=== PATIENT | female | born 1955 | race African-American/Black ===

== ENCOUNTER 2022-07-09 21:10 | Emergency (ER) | payer OTHER, MEDICAID ==
[~2022-07-09] VITALS: Ht 160 cm; Wt 51.0 kg
[2022-07-10] MEDS ORDERED: METHYLPREDNISOLONE SOD SUCC 125 MG/2 ML VIAL IV STA (00:28)
[2022-07-10] MEDS ORDERED: IPRATROPIUM BROMIDE (0.02%) 0.5MG/2.5ML NEB HHN STA ×2 (00:28→04:21)
[2022-07-10] MEDS: ALBUTEROL (0.083%) 2.5MG/3ML NEB HHN SCH ×3 (00:47→01:33)
[2022-07-10 01:04] LABS: BASOPHILS % 0.4 % (0.0-2.0); EOSINOPHILS % 7.4 % (0.0-5.0); HEMATOCRIT. 32.4 % (36.0-48.0); HEMOGLOBIN. 10.5 g/dL (12.0-16.0); LYMPHOCYTES % 22.5 % (20.0-50.0); MEAN CORPUSCULAR HEMOGLOBIN 26.3 pg (28.0-32.0); MEAN CORPUSCULAR VOLUME 80.6 fL (81.0-99.0); MEAN PLATELET VOLUME 7.3 fl (7.4-10.4); MONOCYTES % 6.8 % (2.0-8.0); NEUTROPHILS % 62.9 % (40.0-76.0); PLATELET 350 x1000/uL (130-400); RED BLOOD CELL COUNT 4.02 mill/uL (4.2-5.4); RED CELL DISTRIBUTION WIDTH 15.1 % (11.6-14.6)
[2022-07-10 01:20] LABS: CHLORIDE 96 mEq/L (98-107)
[2022-07-10] MEDS ORDERED: PRED10TA MT (03:40)
[2022-07-10] MEDS ORDERED: ALBUTEROL (0.083%) 2.5MG/3ML NEB HHN STA (04:21)
[2022-07-10 04:30] VITALS: BP 111/61
== END 2022-07-10 05:00 | disposition home or self-care (01) ==
LOC: ER 22:08
DX: J84.10 Pulmonary fibrosis, unspecified (principal); J44.9 Chronic obstructive pulmonary disease, unspecified; R06.02 Shortness of breath
CPT/HCPCS: 36415; 71045; 80053; 83605; 83880; 84484; 85025; 93005; 96374; 99285; J2930

== ENCOUNTER 2022-07-10 07:55 | Emergency (ER) | payer OTHER, MEDICAID ==
[~2022-07-10] VITALS: Ht 157.5 cm; Wt 59.0 kg
[~2022-07-10 07:55] MED LIST: PRED10TA MT
[2022-07-10] MEDS ORDERED: ALBUTEROL (0.083%) 2.5MG/3ML NEB HHN STA (08:08)
[2022-07-10 09:22] VITALS: BP 126/71
== END 2022-07-10 11:05 | disposition short-term general hospital (02) ==
LOC: ER 07:55 → CANBEDREQ 07-11 13:43
DX: R06.03 Acute respiratory distress (principal); J44.1 Chronic obstructive pulmonary disease with (acute) exacerbation; Z20.822 Contact with and (suspected) exposure to COVID-19; Z98.890 Other specified postprocedural states
CPT/HCPCS: 36415; 71045; 84484; 87426; 93005; 99285; C9803

== ENCOUNTER 2022-10-09 17:30 | Inpatient (IN) | payer OTHER, MEDICAID ==
[~2022-10-09] VITALS: Ht 149.9 cm; Wt 50.8 kg
[2022-10-09] MEDS ORDERED: METHYLPREDNISOLONE SOD SUCC 125 MG/2 ML VIAL IV STA (17:54)
[2022-10-09] MEDS ORDERED: ALBUTEROL (0.083%) 2.5MG/3ML NEB HHN STA (17:54)
[2022-10-09] MEDS ORDERED: IPRATROPIUM BROMIDE (0.02%) 0.5MG/2.5ML NEB HHN STA (17:54)
[2022-10-09 19:51] LABS: HEMATOCRIT. 38.2 % (36.0-48.0); HEMOGLOBIN. 11.8 g/dL (12.0-16.0); MEAN CORPUSCULAR HEMOGLOBIN 27.2 pg (28.0-32.0); MEAN CORPUSCULAR VOLUME 88.2 fL (81.0-99.0); MEAN PLATELET VOLUME 7.6 fl (7.4-10.4); PLATELET 273 x1000/uL (130-400); RED BLOOD CELL COUNT 4.33 mill/uL (4.2-5.4); RED CELL DISTRIBUTION WIDTH 16.5 % (11.6-14.6)
[2022-10-09 19:56] LABS: CHLORIDE 99 mEq/L (98-107)
[2022-10-09 20:19] LABS: PLATELET ESTIMATE NORMAL
[2022-10-09] MEDS ORDERED: ALBUTEROL (0.5%) 2.5MG/0.5ML NEB HHN ONE (22:15)
[2022-10-09] MEDS ORDERED: METHYLPREDNISOLONE SOD SUCC 125 MG/2 ML VIAL IV NR (22:15)
[2022-10-09] MEDS ORDERED: IPRATROPIUM BROMIDE (0.02%) 0.5MG/2.5ML NEB ONE (22:15)
[2022-10-10] MEDS ORDERED: ALBUTEROL (0.083%) 2.5MG/3ML NEB HHN NR (01:08)
[2022-10-10] MEDS ORDERED: IPRATROPIUM BROMIDE (0.02%) 0.5MG/2.5ML NEB HHN NR (01:08)
[2022-10-10] MEDS ORDERED: SODIUM CHLORIDE 0.9% 1000ML BAG (SEPSIS BOLUS) IV ONE (01:15)
[2022-10-10] MEDS: VANCOMYCIN 1G PREMIX 200 ML IV NR ×2 (01:47→04:45)
[2022-10-10] MEDS: PIPERACILLIN/TAZ 3.375G PREMIX 50 ML IV NR ×2 (01:47→04:45)
[2022-10-10] MEDS: METHYLPREDNISOLONE SOD SUCC 40 MG/ML VIAL IV SCH ×2 (11:43→21:23)
[2022-10-10] MEDS: PIPERACILLIN/TAZOBACTAM 3.375 G in DEXTROSE 5% WATER 50 ML IV SCH ×2 (11:43→22:31)
[2022-10-10] MEDS: IPRATROPIUM/ALBUTEROL 0.5-3(2.5)MG/3ML NEB HHN SCH ×3 (12:04→20:55)
[2022-10-10 16:44] VITALS: BP 132/55
[2022-10-10 16:51] VITALS: BP 132/55
[2022-10-10 18:00] VITALS: BP 120/68
[2022-10-10 20:00] VITALS: BP 129/80
[2022-10-10] MEDS: MIRTAZAPINE 15MG TABLET PO SCH (21:24)
[2022-10-10] MEDS: FAMOTIDINE 20MG TABLET PO SCH (21:24)
[2022-10-10] MEDS: DOCUSATE SODIUM 250MG CAPSULE PO PRN (21:25)
[2022-10-10 22:00] VITALS: BP 147/86
[2022-10-11] VITALS (13 sets, daily range): BP systolic 99–140; BP diastolic 65–85
[2022-10-11] MEDS: IPRATROPIUM/ALBUTEROL 0.5-3(2.5)MG/3ML NEB HHN SCH ×2 (00:53→04:52)
[2022-10-11 01:54] LABS: CLARITY URINE CLEAR (CLEAR); COLOR URINE YELLOW (YELLOW); KETONES URINE NEGATIVE (NEGATIVE); LEUKOCYTE ESTERASE URINE 3+ (NEGATIVE); NITRITE URINE NEGATIVE (NEGATIVE); OCCULT BLOOD URINE NEGATIVE (NEGATIVE); PH URINE 8.5 (4.5-8.0); PROTEIN URINE TRACE (NEGATIVE); SPECIFIC GRAVITY URINE 1.017 (1.005-1.030); UROBILINOGEN URINE 0.2 E.U./dL (0.2-1.0)
[2022-10-11] MEDS: METHYLPREDNISOLONE SOD SUCC 40 MG/ML VIAL IV SCH ×3 (03:00→21:17)
[2022-10-11] MEDS: PIPERACILLIN/TAZOBACTAM 3.375 G in DEXTROSE 5% WATER 50 ML IV SCH ×3 (06:25→21:17)
[2022-10-11 06:43] LABS: HEMOGLOBIN. 10.8 g/dL (12.0-16.0); MEAN CORPUSCULAR HEMOGLOBIN 27.7 pg (28.0-32.0); MEAN CORPUSCULAR VOLUME 87.3 fL (81.0-99.0); PLATELET 257 x1000/uL (130-400); RED BLOOD CELL COUNT 3.89 mill/uL (4.2-5.4); RED CELL DISTRIBUTION WIDTH 16.5 % (11.6-14.6)
[2022-10-11] MEDS ORDERED: ALBUTEROL (0.083%) 2.5MG/3ML NEB HHN PRN ×2 (08:00)
[2022-10-11] MEDS ORDERED: IPRATROPIUM BROMIDE (0.02%) 0.5MG/2.5ML NEB HHN PRN ×2 (08:00)
[2022-10-11] MEDS: SERTRALINE HCL 25MG TABLET PO SCH (09:11)
[2022-10-11] MEDS: BENZONATATE 100MG CAPSULE PO SCH ×3 (09:11→17:08)
[2022-10-11] MEDS: LORAZEPAM 0.5MG TABLET PO SCH ×3 (09:11→17:08)
[2022-10-11] MEDS: DOCUSATE SODIUM 250MG CAPSULE PO PRN (09:11)
[2022-10-11 15:38] LABS: PLATELET ESTIMATE NORMAL
[2022-10-11] MEDS: IPRATROPIUM BROMIDE (0.02%) 0.5MG/2.5ML NEB HHN SCH ×2 (16:50→20:46)
[2022-10-11] MEDS: ALBUTEROL (0.083%) 2.5MG/3ML NEB HHN SCH ×2 (16:51→20:47)
[2022-10-11] MEDS: FAMOTIDINE 20MG TABLET PO SCH (21:17)
[2022-10-11] MEDS: MIRTAZAPINE 15MG TABLET PO SCH (21:17)
[2022-10-12] VITALS (14 sets, daily range): BP systolic 107–128; BP diastolic 67–86
[2022-10-12] MEDS: IPRATROPIUM BROMIDE (0.02%) 0.5MG/2.5ML NEB HHN SCH ×6 (00:22→19:58)
[2022-10-12] MEDS: ALBUTEROL (0.083%) 2.5MG/3ML NEB HHN SCH ×6 (00:22→19:58)
[2022-10-12] MEDS: METHYLPREDNISOLONE SOD SUCC 40 MG/ML VIAL IV SCH ×3 (03:14→21:17)
[2022-10-12] MEDS: PIPERACILLIN/TAZOBACTAM 3.375 G in DEXTROSE 5% WATER 50 ML IV SCH ×2 (06:02→13:48)
[2022-10-12] MEDS: DOCUSATE SODIUM 250MG CAPSULE PO PRN (08:17)
[2022-10-12] MEDS: BENZONATATE 100MG CAPSULE PO SCH ×3 (08:17→17:40)
[2022-10-12] MEDS: LORAZEPAM 0.5MG TABLET PO SCH ×3 (08:17→17:40)
[2022-10-12] MEDS: SERTRALINE HCL 25MG TABLET PO SCH (08:17)
[2022-10-12 10:06] LABS: BG BASE EXCESS 5.7 mmol/L (-2.0-2.0); BG CARBOXYHEMOGLOBIN 1.4 % (0.5-1.5); BG DEOXYHEMOGLOBIN 4.3 % (0.0-5.0); BG FRACTION INSPIRED OXYGEN 60; BG HCO3 ACT 32.1 mmol/L (22.0-26.0); BG METHEMOGLOBIN 0.3 % (0.0-1.5); BG OXYGEN SATURATION 95.6 % (92.0-98.5); BG PCO2 55.4 mmHg (35.0-45.0); BG PH 7.381 (7.350-7.450); BG PO2 85.9 mmHg (75.0-100.0); BG SAMPLE SITE LEFT BRACHIAL; BG TOTAL HEMOGLOBIN 12.1 g/dL (12.0-18.0); BG VENT MODE HIGH FLOW
[2022-10-12] MEDS: FAMOTIDINE 20MG TABLET PO SCH (21:17)
[2022-10-12] MEDS: MIRTAZAPINE 15MG TABLET PO SCH (21:18)
[2022-10-13] VITALS (10 sets, daily range): BP systolic 103–128; BP diastolic 70–92
[2022-10-13] MEDS: IPRATROPIUM BROMIDE (0.02%) 0.5MG/2.5ML NEB HHN SCH ×6 (01:00→20:16)
[2022-10-13] MEDS: ALBUTEROL (0.083%) 2.5MG/3ML NEB HHN SCH ×6 (01:01→20:16)
[2022-10-13] MEDS: SERTRALINE HCL 25MG TABLET PO SCH (09:48)
[2022-10-13] MEDS: BENZONATATE 100MG CAPSULE PO SCH ×3 (09:48→17:35)
[2022-10-13] MEDS: LORAZEPAM 0.5MG TABLET PO SCH ×3 (09:48→17:35)
[2022-10-13] MEDS: METHYLPREDNISOLONE SOD SUCC 40 MG/ML VIAL IV SCH ×3 (11:00→20:39)
[2022-10-13 16:11] LABS: CHLORIDE 101 mEq/L (98-107); HEMATOCRIT. 37.7 % (36.0-48.0); HEMOGLOBIN. 11.7 g/dL (12.0-16.0); MEAN CORPUSCULAR HEMOGLOBIN 27.2 pg (28.0-32.0); MEAN CORPUSCULAR VOLUME 87.6 fL (81.0-99.0); MEAN PLATELET VOLUME 7.7 fl (7.4-10.4); PLATELET 257 x1000/uL (130-400); RED CELL DISTRIBUTION WIDTH 16.6 % (11.6-14.6)
[2022-10-13 17:42] LABS: PLATELET ESTIMATE NORMAL
[2022-10-13] MEDS: MIRTAZAPINE 15MG TABLET PO SCH (20:39)
[2022-10-13] MEDS: FAMOTIDINE 20MG TABLET PO SCH (20:39)
[2022-10-14] VITALS (13 sets, daily range): BP systolic 96–131; BP diastolic 59–90
[2022-10-14] MEDS: ALBUTEROL (0.083%) 2.5MG/3ML NEB HHN SCH ×6 (00:23→20:50)
[2022-10-14] MEDS: IPRATROPIUM BROMIDE (0.02%) 0.5MG/2.5ML NEB HHN SCH ×6 (00:23→20:50)
[2022-10-14] MEDS: METHYLPREDNISOLONE SOD SUCC 40 MG/ML VIAL IV SCH ×3 (02:24→17:59)
[2022-10-14] MEDS: LORAZEPAM 0.5MG TABLET PO SCH ×3 (09:22→17:59)
[2022-10-14] MEDS: BENZONATATE 100MG CAPSULE PO SCH ×3 (09:22→17:59)
[2022-10-14 11:44] LABS: BG BASE EXCESS 9.4 mmol/L (-2.0-2.0); BG CARBOXYHEMOGLOBIN 1.1 % (0.5-1.5); BG DEOXYHEMOGLOBIN 10.2 % (0.0-5.0); BG FRACTION INSPIRED OXYGEN 45; BG HCO3 ACT 34.5 mmol/L (22.0-26.0); BG METHEMOGLOBIN 0.3 % (0.0-1.5); BG OXYGEN SATURATION 89.7 % (92.0-98.5); BG OXYHEMOGLOBIN 88.4 % (94.0-97.0); BG PCO2 49.1 mmHg (35.0-45.0); BG PH 7.465 (7.350-7.450); BG PO2 55.6 mmHg (75.0-100.0); BG SAMPLE SITE RIGHT RADIAL; BG TOTAL HEMOGLOBIN 12.8 g/dL (12.0-18.0); BG VENT MODE HIGH FLOW
[2022-10-14] MEDS: SERTRALINE HCL 25MG TABLET PO SCH (11:57)
[2022-10-14] MEDS: FAMOTIDINE 20MG TABLET PO SCH (21:21)
[2022-10-14] MEDS: MIRTAZAPINE 15MG TABLET PO SCH (21:21)
[2022-10-15] VITALS (10 sets, daily range): BP systolic 85–124; BP diastolic 48–76
[2022-10-15] MEDS: ALBUTEROL (0.083%) 2.5MG/3ML NEB HHN SCH ×6 (00:27→22:00)
[2022-10-15] MEDS: IPRATROPIUM BROMIDE (0.02%) 0.5MG/2.5ML NEB HHN SCH ×6 (00:27→22:00)
[2022-10-15] MEDS: METHYLPREDNISOLONE SOD SUCC 40 MG/ML VIAL IV SCH ×3 (02:39→18:29)
[2022-10-15] MEDS: LORAZEPAM 0.5MG TABLET PO SCH ×3 (08:44→17:39)
[2022-10-15] MEDS: SERTRALINE HCL 25MG TABLET PO SCH (08:44)
[2022-10-15] MEDS: BENZONATATE 100MG CAPSULE PO SCH ×3 (08:44→17:39)
[2022-10-15] MEDS: MIRTAZAPINE 15MG TABLET PO SCH (20:40)
[2022-10-15] MEDS: FAMOTIDINE 20MG TABLET PO SCH (20:40)
[2022-10-15] MEDS: ACETAMINOPHEN 325MG TABLET PO PRN (22:26)
[2022-10-15] MEDS: ONDANSETRON HCL 4MG/2ML INJ IV PRN (22:35)
[2022-10-16] VITALS (12 sets, daily range): BP systolic 94–136; BP diastolic 57–84
[2022-10-16] MEDS: ALBUTEROL (0.083%) 2.5MG/3ML NEB HHN SCH ×6 (01:09→20:28)
[2022-10-16] MEDS: IPRATROPIUM BROMIDE (0.02%) 0.5MG/2.5ML NEB HHN SCH ×6 (01:09→20:27)
[2022-10-16] MEDS: METHYLPREDNISOLONE SOD SUCC 40 MG/ML VIAL IV SCH ×3 (03:03→18:17)
[2022-10-16 06:00] LABS: HEMATOCRIT. 34.8 % (36.0-48.0); MEAN CORPUSCULAR HEMOGLOBIN 27.6 pg (28.0-32.0); MEAN CORPUSCULAR VOLUME 87.2 fL (81.0-99.0); PLATELET 215 x1000/uL (130-400); RED BLOOD CELL COUNT 3.99 mill/uL (4.2-5.4); RED CELL DISTRIBUTION WIDTH 16.4 % (11.6-14.6)
[2022-10-16] MEDS: SERTRALINE HCL 25MG TABLET PO SCH (09:43)
[2022-10-16] MEDS: BENZONATATE 100MG CAPSULE PO SCH ×3 (09:43→17:28)
[2022-10-16] MEDS: LORAZEPAM 0.5MG TABLET PO SCH (09:43)
[2022-10-16 10:42] LABS: CHLORIDE 100 mEq/L (98-107)
[2022-10-16] MEDS: ENOXAPARIN 40MG/0.4ML SYR SUBCUT SCH (11:01)
[2022-10-16 13:06] LABS: PLATELET ESTIMATE NORMAL
[2022-10-16] MEDS: FAMOTIDINE 20MG TABLET PO SCH (22:07)
[2022-10-16] MEDS: MIRTAZAPINE 15MG TABLET PO SCH (22:07)
[2022-10-17] VITALS (13 sets, daily range): BP systolic 114–139; BP diastolic 65–86
[2022-10-17] MEDS: ALBUTEROL (0.083%) 2.5MG/3ML NEB HHN SCH ×5 (01:52→15:52)
[2022-10-17] MEDS: IPRATROPIUM BROMIDE (0.02%) 0.5MG/2.5ML NEB HHN SCH ×4 (01:52→12:01)
[2022-10-17] MEDS: METHYLPREDNISOLONE SOD SUCC 40 MG/ML VIAL IV SCH ×3 (03:09→18:13)
[2022-10-17] MEDS: SERTRALINE HCL 25MG TABLET PO SCH (09:36)
[2022-10-17] MEDS: ENOXAPARIN 40MG/0.4ML SYR SUBCUT SCH (09:37)
[2022-10-17] MEDS: FAMOTIDINE 20MG TABLET PO SCH (21:04)
[2022-10-17] MEDS: MIRTAZAPINE 15MG TABLET PO SCH (21:04)
[2022-10-18] VITALS (11 sets, daily range): BP systolic 102–151; BP diastolic 67–100
[2022-10-18] MEDS: METHYLPREDNISOLONE SOD SUCC 40 MG/ML VIAL IV SCH ×2 (03:16→11:45)
[2022-10-18] MEDS: ENOXAPARIN 40MG/0.4ML SYR SUBCUT SCH (08:16)
[2022-10-18] MEDS: SERTRALINE HCL 25MG TABLET PO SCH (08:16)
[2022-10-18 08:58] LABS: BG BASE EXCESS 8.9 mmol/L (-2.0-2.0); BG CARBOXYHEMOGLOBIN 0.8 % (0.5-1.5); BG DEOXYHEMOGLOBIN 2.2 % (0.0-5.0); BG FRACTION INSPIRED OXYGEN 55; BG HCO3 ACT 35.5 mmol/L (22.0-26.0); BG METHEMOGLOBIN 0.3 % (0.0-1.5); BG OXYGEN SATURATION 97.8 % (92.0-98.5); BG OXYHEMOGLOBIN 96.7 % (94.0-97.0); BG PCO2 59.2 mmHg (35.0-45.0); BG PH 7.396 (7.350-7.450); BG PO2 125.2 mmHg (75.0-100.0); BG SAMPLE SITE LEFT BRACHIAL; BG TOTAL HEMOGLOBIN 11.3 g/dL (12.0-18.0); BG VENT MODE HIGH FLOW
[2022-10-18] MEDS ORDERED: IPRATROPIUM BROMIDE (0.02%) 0.5MG/2.5ML NEB HHN PRN (13:45)
[2022-10-18] MEDS: METHYLPREDNISOLONE SOD SUCC 125 MG/2 ML VIAL IV SCH (18:23)
[2022-10-18] MEDS: IPRATROPIUM BROMIDE (0.02%) 0.5MG/2.5ML NEB HHN SCH (20:50)
[2022-10-18] MEDS: FAMOTIDINE 20MG TABLET PO SCH (21:16)
[2022-10-18] MEDS: MIRTAZAPINE 15MG TABLET PO SCH (21:16)
[2022-10-18 21:44] LABS: HEMATOCRIT. 36.5 % (36.0-48.0); HEMOGLOBIN. 11.5 g/dL (12.0-16.0); MEAN CORPUSCULAR HEMOGLOBIN 27.9 pg (28.0-32.0); MEAN CORPUSCULAR VOLUME 88.9 fL (81.0-99.0); MEAN PLATELET VOLUME 8.1 fl (7.4-10.4); PLATELET 201 x1000/uL (130-400); RED BLOOD CELL COUNT 4.11 mill/uL (4.2-5.4); RED CELL DISTRIBUTION WIDTH 16.9 % (11.6-14.6)
[2022-10-18 21:59] LABS: CHLORIDE 97 mEq/L (98-107)
[2022-10-18 22:07] LABS: PLATELET ESTIMATE NORMAL
[2022-10-19] VITALS (10 sets, daily range): BP systolic 113–145; BP diastolic 59–97
[2022-10-19] MEDS: IPRATROPIUM BROMIDE (0.02%) 0.5MG/2.5ML NEB HHN SCH ×4 (01:40→20:59)
[2022-10-19] MEDS: METHYLPREDNISOLONE SOD SUCC 125 MG/2 ML VIAL IV SCH ×3 (02:04→18:11)
[2022-10-19 09:10] LABS: BG BASE EXCESS 12.2 mmol/L (-2.0-2.0); BG CARBOXYHEMOGLOBIN 1.1 % (0.5-1.5); BG DEOXYHEMOGLOBIN 5.2 % (0.0-5.0); BG FRACTION INSPIRED OXYGEN 55; BG HCO3 ACT 38.8 mmol/L (22.0-26.0); BG METHEMOGLOBIN 0.3 % (0.0-1.5); BG OXYGEN SATURATION 94.7 % (92.0-98.5); BG OXYHEMOGLOBIN 93.4 % (94.0-97.0); BG PCO2 61.1 mmHg (35.0-45.0); BG PH 7.421 (7.350-7.450); BG PO2 76.3 mmHg (75.0-100.0); BG SAMPLE SITE RIGHT RADIAL; BG TOTAL HEMOGLOBIN 11.3 g/dL (12.0-18.0); BG VENT MODE HIGH FLOW
[2022-10-19] MEDS: BENZONATATE 100MG CAPSULE PO SCH ×4 (09:18→18:11)
[2022-10-19] MEDS: ENOXAPARIN 40MG/0.4ML SYR SUBCUT SCH (09:18)
[2022-10-19] MEDS: SERTRALINE HCL 25MG TABLET PO SCH (09:18)
[2022-10-19] MEDS ORDERED: DEXTROSE 50% WATER 50ML SYRINGE IV PRN (11:45)
[2022-10-19] MEDS: BLOOD SUGAR DIAGNOSTIC STRIP TEST SCH ×3 (11:50→20:28)
[2022-10-19] MEDS: INSULIN LISPRO 100 UNITS/ML SUBCUT SCH ×3 (12:46→20:37)
[2022-10-19] MEDS: FAMOTIDINE 20MG TABLET PO SCH (20:36)
[2022-10-19] MEDS: MIRTAZAPINE 15MG TABLET PO SCH (20:36)
[2022-10-20] VITALS (11 sets, daily range): BP systolic 131–153; BP diastolic 74–91
[2022-10-20] MEDS: IPRATROPIUM BROMIDE (0.02%) 0.5MG/2.5ML NEB HHN SCH ×4 (01:09→20:00)
[2022-10-20] MEDS: METHYLPREDNISOLONE SOD SUCC 125 MG/2 ML VIAL IV SCH ×3 (03:11→18:32)
[2022-10-20] MEDS: BLOOD SUGAR DIAGNOSTIC STRIP TEST SCH ×4 (07:54→21:51)
[2022-10-20] MEDS: INSULIN LISPRO 100 UNITS/ML SUBCUT SCH ×4 (08:00→22:01)
[2022-10-20 09:13] LABS: BG BASE EXCESS 7.3 mmol/L (-2.0-2.0); BG CARBOXYHEMOGLOBIN 0.6 % (0.5-1.5); BG DEOXYHEMOGLOBIN 4.5 % (0.0-5.0); BG FRACTION INSPIRED OXYGEN 55; BG HCO3 ACT 33.6 mmol/L (22.0-26.0); BG METHEMOGLOBIN 0.3 % (0.0-1.5); BG OXYGEN SATURATION 95.5 % (92.0-98.5); BG OXYHEMOGLOBIN 94.6 % (94.0-97.0); BG PCO2 56.2 mmHg (35.0-45.0); BG PH 7.395 (7.350-7.450); BG PO2 80.1 mmHg (75.0-100.0); BG SAMPLE SITE RIGHT BRACHIAL; BG TOTAL HEMOGLOBIN 11.8 g/dL (12.0-18.0); BG VENT MODE VAPOTHEM
[2022-10-20] MEDS: BENZONATATE 100MG CAPSULE PO SCH ×3 (09:20→16:46)
[2022-10-20] MEDS: SERTRALINE HCL 25MG TABLET PO SCH (09:20)
[2022-10-20] MEDS: ENOXAPARIN 40MG/0.4ML SYR SUBCUT SCH (09:21)
[2022-10-20] MEDS ORDERED: INSULIN GLARGINE 100 UNITS/ML SUBCUT NR (11:15)
[2022-10-20] MEDS: MIRTAZAPINE 15MG TABLET PO SCH (21:44)
[2022-10-20] MEDS: FAMOTIDINE 20MG TABLET PO SCH (21:44)
[2022-10-20] MEDS: INSULIN GLARGINE 100 UNITS/ML SUBCUT SCH (21:50)
[2022-10-21] VITALS (11 sets, daily range): BP systolic 125–143; BP diastolic 62–89
[2022-10-21] MEDS: IPRATROPIUM BROMIDE (0.02%) 0.5MG/2.5ML NEB HHN SCH ×4 (01:21→21:00)
[2022-10-21] MEDS: METHYLPREDNISOLONE SOD SUCC 125 MG/2 ML VIAL IV SCH ×3 (03:50→18:31)
[2022-10-21] MEDS: BLOOD SUGAR DIAGNOSTIC STRIP TEST SCH ×4 (07:30→21:00)
[2022-10-21] MEDS: INSULIN LISPRO 100 UNITS/ML SUBCUT SCH ×4 (08:00→21:51)
[2022-10-21 08:11] LABS: BG BASE EXCESS 7.5 mmol/L (-2.0-2.0); BG CARBOXYHEMOGLOBIN 0.7 % (0.5-1.5); BG HCO3 ACT 34.8 mmol/L (22.0-26.0); BG METHEMOGLOBIN 0.3 % (0.0-1.5); BG PCO2 62.8 mmHg (35.0-45.0); BG PH 7.361 (7.350-7.450); BG PO2 103.6 mmHg (75.0-100.0); BG SAMPLE SITE RIGHT BRACHIAL; BG TOTAL HEMOGLOBIN 11.7 g/dL (12.0-18.0); BG VENT MODE VAPOTHERM
[2022-10-21] MEDS: BENZONATATE 100MG CAPSULE PO SCH ×3 (09:02→16:28)
[2022-10-21] MEDS: DOCUSATE SODIUM 250MG CAPSULE PO PRN (09:02)
[2022-10-21] MEDS: SERTRALINE HCL 25MG TABLET PO SCH (09:02)
[2022-10-21] MEDS: ENOXAPARIN 40MG/0.4ML SYR SUBCUT SCH (09:03)
[2022-10-21] MEDS: INSULIN GLARGINE 100 UNITS/ML SUBCUT SCH ×2 (09:17→21:51)
[2022-10-21] MEDS: FAMOTIDINE 20MG TABLET PO SCH (21:40)
[2022-10-21] MEDS: MIRTAZAPINE 15MG TABLET PO SCH (21:40)
[2022-10-22] VITALS (10 sets, daily range): BP systolic 113–151; BP diastolic 74–93
[2022-10-22] MEDS: IPRATROPIUM BROMIDE (0.02%) 0.5MG/2.5ML NEB HHN SCH ×5 (00:53→20:50)
[2022-10-22] MEDS: METHYLPREDNISOLONE SOD SUCC 125 MG/2 ML VIAL IV SCH ×3 (03:08→19:55)
[2022-10-22] MEDS: BLOOD SUGAR DIAGNOSTIC STRIP TEST SCH ×4 (07:30→21:00)
[2022-10-22] MEDS: INSULIN GLARGINE 100 UNITS/ML SUBCUT SCH ×2 (09:14→21:44)
[2022-10-22] MEDS: INSULIN LISPRO 100 UNITS/ML SUBCUT SCH ×4 (09:16→21:00)
[2022-10-22] MEDS: ENOXAPARIN 40MG/0.4ML SYR SUBCUT SCH (09:16)
[2022-10-22] MEDS: SERTRALINE HCL 25MG TABLET PO SCH (09:17)
[2022-10-22] MEDS: BENZONATATE 100MG CAPSULE PO SCH ×3 (09:17→21:43)
[2022-10-22] MEDS ORDERED: IPRATROPIUM BROMIDE (0.02%) 0.5MG/2.5ML NEB HHN PRN (12:30)
[2022-10-22] MEDS: GUAIFENESIN 600MG ER TABLET PO SCH (17:54)
[2022-10-22] MEDS: MIRTAZAPINE 15MG TABLET PO SCH (20:34)
[2022-10-22] MEDS: FAMOTIDINE 20MG TABLET PO SCH (20:34)
[2022-10-22] MEDS: ONDANSETRON HCL 4MG/2ML INJ IV PRN (21:43)
[2022-10-23] VITALS (11 sets, daily range): BP systolic 101–133; BP diastolic 53–89
[2022-10-23] MEDS: IPRATROPIUM BROMIDE (0.02%) 0.5MG/2.5ML NEB HHN SCH ×4 (01:11→19:57)
[2022-10-23] MEDS: METHYLPREDNISOLONE SOD SUCC 125 MG/2 ML VIAL IV SCH ×3 (03:44→20:34)
[2022-10-23] MEDS ORDERED: LIDOCAINE HCL/PF 1% 2ML VIAL ONE (07:00)
[2022-10-23] MEDS: BLOOD SUGAR DIAGNOSTIC STRIP TEST SCH ×4 (07:41→21:00)
[2022-10-23 08:16] LABS: BG BASE EXCESS 6.5 mmol/L (-2.0-2.0); BG CARBOXYHEMOGLOBIN 1.2 % (0.5-1.5); BG DEOXYHEMOGLOBIN 3.7 % (0.0-5.0); BG HCO3 ACT 33.3 mmol/L (22.0-26.0); BG METHEMOGLOBIN 0.3 % (0.0-1.5); BG OXYGEN SATURATION 96.2 % (92.0-98.5); BG OXYHEMOGLOBIN 94.8 % (94.0-97.0); BG PCO2 58.3 mmHg (35.0-45.0); BG PH 7.375 (7.350-7.450); BG PO2 91.9 mmHg (75.0-100.0); BG SAMPLE SITE RIGHT BRACHIAL; BG TOTAL HEMOGLOBIN 12.4 g/dL (12.0-18.0); BG VENT MODE VAPOTHERM
[2022-10-23] MEDS: INSULIN LISPRO 100 UNITS/ML SUBCUT SCH ×4 (08:44→22:29)
[2022-10-23] MEDS: ENOXAPARIN 40MG/0.4ML SYR SUBCUT SCH (08:44)
[2022-10-23] MEDS: BENZONATATE 100MG CAPSULE PO SCH ×3 (08:44→17:44)
[2022-10-23] MEDS: GUAIFENESIN 600MG ER TABLET PO SCH ×2 (08:44→20:34)
[2022-10-23] MEDS: INSULIN GLARGINE 100 UNITS/ML SUBCUT SCH ×2 (10:35→22:28)
[2022-10-23] MEDS: SERTRALINE HCL 25MG TABLET PO SCH (12:35)
[2022-10-23] MEDS: FAMOTIDINE 20MG TABLET PO SCH (20:34)
[2022-10-23] MEDS: MIRTAZAPINE 15MG TABLET PO SCH (20:34)
[2022-10-24] VITALS (12 sets, daily range): BP systolic 102–147; BP diastolic 52–90
[2022-10-24] MEDS: IPRATROPIUM BROMIDE (0.02%) 0.5MG/2.5ML NEB HHN SCH ×4 (01:41→20:34)
[2022-10-24] MEDS: METHYLPREDNISOLONE SOD SUCC 125 MG/2 ML VIAL IV SCH ×3 (02:39→21:49)
[2022-10-24] MEDS: INSULIN LISPRO 100 UNITS/ML SUBCUT SCH ×4 (07:46→21:00)
[2022-10-24] MEDS: BLOOD SUGAR DIAGNOSTIC STRIP TEST SCH ×4 (07:46→21:00)
[2022-10-24] MEDS: ENOXAPARIN 40MG/0.4ML SYR SUBCUT SCH (08:53)
[2022-10-24] MEDS: GUAIFENESIN 600MG ER TABLET PO SCH ×2 (08:53→21:50)
[2022-10-24] MEDS: SERTRALINE HCL 25MG TABLET PO SCH (08:53)
[2022-10-24] MEDS: BENZONATATE 100MG CAPSULE PO SCH ×3 (08:53→17:52)
[2022-10-24] MEDS: INSULIN GLARGINE 100 UNITS/ML SUBCUT SCH ×2 (10:38→22:01)
[2022-10-24] MEDS: DOCUSATE SODIUM 250MG CAPSULE PO PRN (14:33)
[2022-10-24] MEDS: FAMOTIDINE 20MG TABLET PO SCH (21:49)
[2022-10-24] MEDS: MIRTAZAPINE 15MG TABLET PO SCH (21:50)
[2022-10-25] VITALS (13 sets, daily range): BP systolic 103–132; BP diastolic 62–85
[2022-10-25] MEDS: ONDANSETRON HCL 4MG/2ML INJ IV PRN (00:19)
[2022-10-25] MEDS: IPRATROPIUM BROMIDE (0.02%) 0.5MG/2.5ML NEB HHN SCH ×4 (02:18→21:14)
[2022-10-25] MEDS: METHYLPREDNISOLONE SOD SUCC 125 MG/2 ML VIAL IV SCH ×3 (03:15→18:08)
[2022-10-25 06:31] LABS: HEMATOCRIT. 36.1 % (36.0-48.0); HEMOGLOBIN. 11.5 g/dL (12.0-16.0); MEAN CORPUSCULAR HEMOGLOBIN 27.6 pg (28.0-32.0); MEAN CORPUSCULAR VOLUME 86.7 fL (81.0-99.0); MEAN PLATELET VOLUME 8.4 fl (7.4-10.4); PLATELET 182 x1000/uL (130-400); RED BLOOD CELL COUNT 4.16 mill/uL (4.2-5.4); RED CELL DISTRIBUTION WIDTH 16.4 % (11.6-14.6)
[2022-10-25] MEDS: BLOOD SUGAR DIAGNOSTIC STRIP TEST SCH ×4 (07:30→21:20)
[2022-10-25 07:40] LABS: CHLORIDE 103 mEq/L (98-107)
[2022-10-25] MEDS: INSULIN LISPRO 100 UNITS/ML SUBCUT SCH ×4 (08:00→21:00)
[2022-10-25] MEDS: GUAIFENESIN 600MG ER TABLET PO SCH ×2 (09:50→21:20)
[2022-10-25] MEDS: BENZONATATE 100MG CAPSULE PO SCH ×3 (09:50→17:00)
[2022-10-25] MEDS: DOCUSATE SODIUM 250MG CAPSULE PO PRN (09:50)
[2022-10-25] MEDS: SERTRALINE HCL 25MG TABLET PO SCH (09:50)
[2022-10-25] MEDS: ENOXAPARIN 40MG/0.4ML SYR SUBCUT SCH (09:55)
[2022-10-25] MEDS: INSULIN GLARGINE 100 UNITS/ML SUBCUT SCH ×2 (10:41→21:30)
[2022-10-25] MEDS ORDERED: LORAZEPAM 0.5MG TABLET PO PRN (12:00)
[2022-10-25 13:37] LABS: PLATELET ESTIMATE NORMAL
[2022-10-25] MEDS ORDERED: POLYETHYLENE GLYCOL 3350 (17GM) 1 DOSE PACK PO PRN (17:45)
[2022-10-25] MEDS: MIRTAZAPINE 15MG TABLET PO SCH (21:20)
[2022-10-25] MEDS: PIRFENIDONE 801 MG PO SCH (21:20)
[2022-10-25] MEDS: FAMOTIDINE 20MG TABLET PO SCH (21:20)
[2022-10-26] VITALS (12 sets, daily range): BP systolic 117–144; BP diastolic 71–86
[2022-10-26] MEDS: IPRATROPIUM BROMIDE (0.02%) 0.5MG/2.5ML NEB HHN SCH ×5 (02:09→20:10)
[2022-10-26] MEDS: METHYLPREDNISOLONE SOD SUCC 125 MG/2 ML VIAL IV SCH ×3 (03:46→18:28)
[2022-10-26] MEDS: BLOOD SUGAR DIAGNOSTIC STRIP TEST SCH ×4 (07:30→21:00)
[2022-10-26] MEDS: INSULIN LISPRO 100 UNITS/ML SUBCUT SCH ×4 (08:00→21:00)
[2022-10-26] MEDS: ENOXAPARIN 40MG/0.4ML SYR SUBCUT SCH (08:47)
[2022-10-26] MEDS: PIRFENIDONE 801 MG PO SCH ×3 (08:48→18:28)
[2022-10-26] MEDS: GUAIFENESIN 600MG ER TABLET PO SCH ×2 (08:49→22:00)
[2022-10-26] MEDS: SERTRALINE HCL 25MG TABLET PO SCH (08:49)
[2022-10-26] MEDS: BENZONATATE 100MG CAPSULE PO SCH ×3 (08:49→18:28)
[2022-10-26] MEDS: INSULIN GLARGINE 100 UNITS/ML SUBCUT SCH ×2 (11:21→22:01)
[2022-10-26] MEDS: MULTIVITAMINS,THER W-MINERALS TABLET PO SCH (15:14)
[2022-10-26] MEDS: MIRTAZAPINE 15MG TABLET PO SCH (22:00)
[2022-10-26] MEDS: FAMOTIDINE 20MG TABLET PO SCH (22:00)
[2022-10-27] VITALS (9 sets, daily range): BP systolic 102–138; BP diastolic 58–85
[2022-10-27] MEDS: IPRATROPIUM BROMIDE (0.02%) 0.5MG/2.5ML NEB HHN SCH ×4 (02:15→21:29)
[2022-10-27] MEDS: METHYLPREDNISOLONE SOD SUCC 125 MG/2 ML VIAL IV SCH ×3 (05:43→18:52)
[2022-10-27] MEDS: BLOOD SUGAR DIAGNOSTIC STRIP TEST SCH ×4 (08:33→21:00)
[2022-10-27] MEDS: SERTRALINE HCL 25MG TABLET PO SCH (08:34)
[2022-10-27] MEDS: BENZONATATE 100MG CAPSULE PO SCH ×3 (08:34→17:02)
[2022-10-27] MEDS: PIRFENIDONE 801 MG PO SCH ×3 (08:34→17:02)
[2022-10-27] MEDS: GUAIFENESIN 600MG ER TABLET PO SCH ×2 (08:34→22:14)
[2022-10-27] MEDS: ENOXAPARIN 40MG/0.4ML SYR SUBCUT SCH (08:34)
[2022-10-27] MEDS: MULTIVITAMINS,THER W-MINERALS TABLET PO SCH (08:34)
[2022-10-27] MEDS: INSULIN LISPRO 100 UNITS/ML SUBCUT SCH ×4 (08:40→22:16)
[2022-10-27] MEDS: INSULIN GLARGINE 100 UNITS/ML SUBCUT SCH ×2 (12:31→22:16)
[2022-10-27] MEDS: MIRTAZAPINE 15MG TABLET PO SCH (22:14)
[2022-10-27] MEDS: FAMOTIDINE 20MG TABLET PO SCH (22:14)
[2022-10-28] VITALS (14 sets, daily range): BP systolic 91–143; BP diastolic 49–86
[2022-10-28] MEDS: IPRATROPIUM BROMIDE (0.02%) 0.5MG/2.5ML NEB HHN SCH ×3 (00:44→20:30)
[2022-10-28] MEDS: METHYLPREDNISOLONE SOD SUCC 125 MG/2 ML VIAL IV SCH ×3 (03:45→18:15)
[2022-10-28] MEDS: BLOOD SUGAR DIAGNOSTIC STRIP TEST SCH ×4 (07:30→21:00)
[2022-10-28] MEDS: INSULIN LISPRO 100 UNITS/ML SUBCUT SCH ×4 (08:00→21:00)
[2022-10-28] MEDS: PIRFENIDONE 801 MG PO SCH ×3 (08:57→18:02)
[2022-10-28] MEDS: GUAIFENESIN 600MG ER TABLET PO SCH ×2 (08:58→22:18)
[2022-10-28] MEDS: BENZONATATE 100MG CAPSULE PO SCH ×3 (08:58→18:01)
[2022-10-28] MEDS: ENOXAPARIN 40MG/0.4ML SYR SUBCUT SCH (08:58)
[2022-10-28] MEDS: MULTIVITAMINS,THER W-MINERALS TABLET PO SCH (08:58)
[2022-10-28] MEDS: SERTRALINE HCL 25MG TABLET PO SCH (08:58)
[2022-10-28] MEDS: INSULIN GLARGINE 100 UNITS/ML SUBCUT SCH ×2 (10:00→22:24)
[2022-10-28] MEDS: FAMOTIDINE 20MG TABLET PO SCH (22:18)
[2022-10-28] MEDS: MIRTAZAPINE 15MG TABLET PO SCH (22:18)
[2022-10-28] MEDS: ACETAMINOPHEN 325MG TABLET PO PRN (22:25)
[2022-10-29] VITALS (10 sets, daily range): BP systolic 115–127; BP diastolic 57–79
[2022-10-29] MEDS: IPRATROPIUM BROMIDE (0.02%) 0.5MG/2.5ML NEB HHN SCH ×3 (01:18→13:49)
[2022-10-29] MEDS: METHYLPREDNISOLONE SOD SUCC 125 MG/2 ML VIAL IV SCH ×3 (03:09→18:14)
[2022-10-29 06:58] LABS: HEMATOCRIT. 37.5 % (36.0-48.0); MEAN CORPUSCULAR HEMOGLOBIN 27.8 pg (28.0-32.0); MEAN CORPUSCULAR VOLUME 86.4 fL (81.0-99.0); PLATELET 177 x1000/uL (130-400); RED BLOOD CELL COUNT 4.34 mill/uL (4.2-5.4); RED CELL DISTRIBUTION WIDTH 16.5 % (11.6-14.6)
[2022-10-29] MEDS: BLOOD SUGAR DIAGNOSTIC STRIP TEST SCH ×3 (07:15→17:43)
[2022-10-29 07:39] LABS: CHLORIDE 99 mEq/L (98-107)
[2022-10-29] MEDS: INSULIN LISPRO 100 UNITS/ML SUBCUT SCH ×4 (08:00→21:31)
[2022-10-29] MEDS: BENZONATATE 100MG CAPSULE PO SCH ×3 (08:26→18:12)
[2022-10-29] MEDS: SERTRALINE HCL 25MG TABLET PO SCH (08:26)
[2022-10-29] MEDS: MULTIVITAMINS,THER W-MINERALS TABLET PO SCH (08:26)
[2022-10-29] MEDS: ENOXAPARIN 40MG/0.4ML SYR SUBCUT SCH (08:27)
[2022-10-29] MEDS: GUAIFENESIN 600MG ER TABLET PO SCH ×2 (08:27→21:30)
[2022-10-29] MEDS: PIRFENIDONE 801 MG PO SCH ×3 (08:29→18:12)
[2022-10-29] MEDS: INSULIN GLARGINE 100 UNITS/ML SUBCUT SCH ×2 (10:42→21:32)
[2022-10-29 11:29] LABS: PLATELET ESTIMATE NORMAL
[2022-10-29] MEDS: MENTHOL/LANOLIN/CALAMINE/ZN OX OINT 71GM TOP SCH ×2 (13:44→17:00)
[2022-10-29] MEDS: FAMOTIDINE 20MG TABLET PO SCH (21:30)
[2022-10-29] MEDS: MIRTAZAPINE 15MG TABLET PO SCH (21:30)
[2022-10-30] VITALS (12 sets, daily range): BP systolic 90–138; BP diastolic 59–84
[2022-10-30] MEDS: METHYLPREDNISOLONE SOD SUCC 125 MG/2 ML VIAL IV SCH ×3 (03:14→18:49)
[2022-10-30 07:26] LABS: CHLORIDE 103 mEq/L (98-107)
[2022-10-30 07:28] LABS: HEMATOCRIT. 37.1 % (36.0-48.0); HEMOGLOBIN. 12.2 g/dL (12.0-16.0); MEAN CORPUSCULAR HEMOGLOBIN 28.6 pg (28.0-32.0); MEAN CORPUSCULAR VOLUME 87.3 fL (81.0-99.0); MEAN PLATELET VOLUME 8.3 fl (7.4-10.4); PLATELET 183 x1000/uL (130-400); RED BLOOD CELL COUNT 4.25 mill/uL (4.2-5.4); RED CELL DISTRIBUTION WIDTH 16.4 % (11.6-14.6)
[2022-10-30] MEDS: BLOOD SUGAR DIAGNOSTIC STRIP TEST SCH ×4 (07:30→20:25)
[2022-10-30] MEDS: INSULIN LISPRO 100 UNITS/ML SUBCUT SCH ×4 (08:00→20:35)
[2022-10-30] MEDS: BENZONATATE 100MG CAPSULE PO SCH ×3 (08:14→17:33)
[2022-10-30] MEDS: GUAIFENESIN 600MG ER TABLET PO SCH ×2 (08:14→20:25)
[2022-10-30] MEDS: MULTIVITAMINS,THER W-MINERALS TABLET PO SCH (08:14)
[2022-10-30] MEDS: SERTRALINE HCL 25MG TABLET PO SCH (08:14)
[2022-10-30] MEDS: ENOXAPARIN 40MG/0.4ML SYR SUBCUT SCH (08:18)
[2022-10-30] MEDS: MENTHOL/LANOLIN/CALAMINE/ZN OX OINT 71GM TOP SCH ×2 (08:22→17:33)
[2022-10-30] MEDS: PIRFENIDONE 801 MG PO SCH ×3 (08:23→17:35)
[2022-10-30] MEDS: INSULIN GLARGINE 100 UNITS/ML SUBCUT SCH ×2 (10:09→20:35)
[2022-10-30 10:35] LABS: PLATELET ESTIMATE NORMAL
[2022-10-30] MEDS ORDERED: IPRATROPIUM BROMIDE (0.02%) 0.5MG/2.5ML NEB HHN PRN (12:30)
[2022-10-30] MEDS: IPRATROPIUM BROMIDE (0.02%) 0.5MG/2.5ML NEB HHN SCH ×2 (14:45→20:32)
[2022-10-30] MEDS: MIRTAZAPINE 15MG TABLET PO SCH (20:25)
[2022-10-30] MEDS: FAMOTIDINE 20MG TABLET PO SCH (20:25)
[2022-10-31] VITALS (15 sets, daily range): BP systolic 103–141; BP diastolic 42–79
[2022-10-31] MEDS: IPRATROPIUM BROMIDE (0.02%) 0.5MG/2.5ML NEB HHN SCH ×4 (00:57→22:05)
[2022-10-31] MEDS: METHYLPREDNISOLONE SOD SUCC 125 MG/2 ML VIAL IV SCH ×3 (02:38→23:00)
[2022-10-31] MEDS: BLOOD SUGAR DIAGNOSTIC STRIP TEST SCH ×4 (07:30→21:00)
[2022-10-31] MEDS: INSULIN LISPRO 100 UNITS/ML SUBCUT SCH ×4 (08:00→23:59)
[2022-10-31] MEDS: MENTHOL/LANOLIN/CALAMINE/ZN OX OINT 71GM TOP SCH ×2 (09:00→17:26)
[2022-10-31] MEDS: BENZONATATE 100MG CAPSULE PO SCH ×3 (09:04→17:44)
[2022-10-31] MEDS: ENOXAPARIN 40MG/0.4ML SYR SUBCUT SCH (09:04)
[2022-10-31] MEDS: SERTRALINE HCL 25MG TABLET PO SCH (09:05)
[2022-10-31] MEDS: MULTIVITAMINS,THER W-MINERALS TABLET PO SCH (09:05)
[2022-10-31] MEDS: PIRFENIDONE 801 MG PO SCH ×3 (09:05→17:45)
[2022-10-31] MEDS: GUAIFENESIN 600MG ER TABLET PO SCH ×2 (09:05→23:03)
[2022-10-31] MEDS: INSULIN GLARGINE 100 UNITS/ML SUBCUT SCH ×2 (10:00→23:58)
[2022-10-31] MEDS: MIRTAZAPINE 15MG TABLET PO SCH (22:57)
[2022-10-31] MEDS: FAMOTIDINE 20MG TABLET PO SCH (22:58)
[2022-11-01] VITALS (12 sets, daily range): BP systolic 116–142; BP diastolic 65–88
[2022-11-01] MEDS: IPRATROPIUM BROMIDE (0.02%) 0.5MG/2.5ML NEB HHN SCH ×4 (00:42→20:14)
[2022-11-01] MEDS: BLOOD SUGAR DIAGNOSTIC STRIP TEST SCH ×4 (07:30→21:47)
[2022-11-01] MEDS: INSULIN LISPRO 100 UNITS/ML SUBCUT SCH ×4 (08:00→21:00)
[2022-11-01] MEDS ORDERED: METHYLPREDNISOLONE SOD SUCC 125 MG/2 ML VIAL IV SCH (09:00)
[2022-11-01] MEDS: PIRFENIDONE 801 MG PO SCH ×3 (10:51→17:06)
[2022-11-01] MEDS: BENZONATATE 100MG CAPSULE PO SCH ×3 (10:51→17:08)
[2022-11-01] MEDS: SERTRALINE HCL 25MG TABLET PO SCH (10:51)
[2022-11-01] MEDS: MULTIVITAMINS,THER W-MINERALS TABLET PO SCH (10:52)
[2022-11-01] MEDS: ENOXAPARIN 40MG/0.4ML SYR SUBCUT SCH (10:52)
[2022-11-01] MEDS: GUAIFENESIN 600MG ER TABLET PO SCH ×2 (10:52→21:56)
[2022-11-01] MEDS: INSULIN GLARGINE 100 UNITS/ML SUBCUT SCH ×2 (10:53→21:54)
[2022-11-01] MEDS: METHYLPREDNISOLONE 500 MG in D5W 100 ML IV SCH (11:02)
[2022-11-01] MEDS: MENTHOL/LANOLIN/CALAMINE/ZN OX OINT 71GM TOP SCH ×2 (11:02→17:07)
[2022-11-01] MEDS: MIRTAZAPINE 15MG TABLET PO SCH (21:56)
[2022-11-01] MEDS: FAMOTIDINE 20MG TABLET PO SCH (21:56)
[2022-11-02] VITALS (19 sets, daily range): BP systolic 74–130; BP diastolic 41–84
[2022-11-02] MEDS: IPRATROPIUM BROMIDE (0.02%) 0.5MG/2.5ML NEB HHN SCH ×4 (01:53→21:05)
[2022-11-02] MEDS: INSULIN LISPRO 100 UNITS/ML SUBCUT SCH ×4 (08:00→21:00)
[2022-11-02] MEDS: METHYLPREDNISOLONE 500 MG in D5W 100 ML IV SCH (09:00)
[2022-11-02] MEDS: PIRFENIDONE 801 MG PO SCH ×3 (09:00→17:00)
[2022-11-02] MEDS: MENTHOL/LANOLIN/CALAMINE/ZN OX OINT 71GM TOP SCH ×2 (09:00→17:00)
[2022-11-02] MEDS: GUAIFENESIN 600MG ER TABLET PO SCH ×2 (10:00→21:03)
[2022-11-02] MEDS: SERTRALINE HCL 25MG TABLET PO SCH (10:00)
[2022-11-02] MEDS: ENOXAPARIN 40MG/0.4ML SYR SUBCUT SCH (10:00)
[2022-11-02] MEDS: MULTIVITAMINS,THER W-MINERALS TABLET PO SCH (10:00)
[2022-11-02] MEDS: DOCUSATE SODIUM 250MG CAPSULE PO PRN (10:00)
[2022-11-02] MEDS: BENZONATATE 100MG CAPSULE PO SCH ×3 (10:00→17:00)
[2022-11-02] MEDS: INSULIN GLARGINE 100 UNITS/ML SUBCUT SCH ×2 (10:00→22:00)
[2022-11-02 11:58] LABS: HEMATOCRIT. 33.7 % (36.0-48.0); HEMOGLOBIN. 11.1 g/dL (12.0-16.0); MEAN CORPUSCULAR HEMOGLOBIN 28.4 pg (28.0-32.0); MEAN CORPUSCULAR VOLUME 86.6 fL (81.0-99.0); MEAN PLATELET VOLUME 7.9 fl (7.4-10.4); PLATELET 176 x1000/uL (130-400); RED BLOOD CELL COUNT 3.89 mill/uL (4.2-5.4)
[2022-11-02 12:05] LABS: CHLORIDE 96 mEq/L (98-107)
[2022-11-02 12:48] LABS: PLATELET ESTIMATE NORMAL
[2022-11-02] MEDS: PANTOPRAZOLE SODIUM 40 MG/VIAL IV SCH ×2 (15:15→21:05)
[2022-11-02] MEDS ORDERED: SODIUM CHLORIDE 0.9% 1,000 ML IV ONE (16:00)
[2022-11-02 17:23] LABS: TOTAL IRON BINDING CAPACITY 172 ug/dL (250-450)
[2022-11-02] MEDS ORDERED: SODIUM CHLORIDE 0.9% 500 ML IV ONE (17:30)
[2022-11-02 17:39] LABS: FERRITIN 216 ng/mL (10-291)
[2022-11-02 18:00] LABS: FOLIC ACID (FOLATE) SERUM > 20.00 ng/mL (>5.38); VITAMIN B12 SERUM > 2000.0 pg/mL (211-911)
[2022-11-02 18:34] LABS: HEMATOCRIT 28.4 % (36.0-48.0); HEMOGLOBIN 9.3 g/dL (12.0-16.0)
[2022-11-02] MEDS: BLOOD SUGAR DIAGNOSTIC STRIP TEST SCH (21:00)
[2022-11-02] MEDS: FAMOTIDINE 20MG TABLET PO SCH (21:03)
[2022-11-02] MEDS: SODIUM CHLORIDE 0.9% 1,000 ML IV SCH (21:04)
[2022-11-02] MEDS: MIRTAZAPINE 15MG TABLET PO SCH (21:17)
[2022-11-03] VITALS (14 sets, daily range): BP systolic 93–115; BP diastolic 48–68
[2022-11-03] MEDS: IPRATROPIUM BROMIDE (0.02%) 0.5MG/2.5ML NEB HHN SCH ×4 (02:26→20:08)
[2022-11-03 06:35] LABS: HEMATOCRIT. 29.6 % (36.0-48.0); HEMOGLOBIN. 9.6 g/dL (12.0-16.0); MEAN CORPUSCULAR HEMOGLOBIN 29.3 pg (28.0-32.0); MEAN CORPUSCULAR VOLUME 90.3 fL (81.0-99.0); MEAN PLATELET VOLUME 8.3 fl (7.4-10.4); PLATELET 122 x1000/uL (130-400); RED BLOOD CELL COUNT 3.28 mill/uL (4.2-5.4); RED CELL DISTRIBUTION WIDTH 15.3 % (11.6-14.6)
[2022-11-03 06:44] LABS: CHLORIDE 111 mEq/L (98-107)
[2022-11-03] MEDS: INSULIN LISPRO 100 UNITS/ML SUBCUT SCH ×4 (07:59→21:00)
[2022-11-03] MEDS: BLOOD SUGAR DIAGNOSTIC STRIP TEST SCH ×4 (07:59→21:00)
[2022-11-03 08:40] LABS: NUCLEATED RED BLOOD CELLS 2 /100 WBC; PLATELET ESTIMATE SLIGHTLY DECREASED
[2022-11-03] MEDS: PIRFENIDONE 801 MG PO SCH ×3 (09:00→17:22)
[2022-11-03] MEDS: MENTHOL/LANOLIN/CALAMINE/ZN OX OINT 71GM TOP SCH ×2 (09:00→17:21)
[2022-11-03] MEDS: PANTOPRAZOLE SODIUM 40 MG/VIAL IV SCH ×2 (09:41→21:01)
[2022-11-03] MEDS: MULTIVITAMINS,THER W-MINERALS TABLET PO SCH (09:42)
[2022-11-03] MEDS: BENZONATATE 100MG CAPSULE PO SCH ×3 (09:42→17:20)
[2022-11-03] MEDS: GUAIFENESIN 600MG ER TABLET PO SCH ×2 (09:42→20:59)
[2022-11-03] MEDS: SERTRALINE HCL 25MG TABLET PO SCH (09:42)
[2022-11-03] MEDS: INSULIN GLARGINE 100 UNITS/ML SUBCUT SCH ×2 (10:43→22:00)
[2022-11-03 12:19] LABS: HEMATOCRIT 24.4 % (36.0-48.0)
[2022-11-03 12:27] LABS: PROTHROMBIN TIME 10.9 sec (9.6-11.0)
[2022-11-03] MEDS: ACETAMINOPHEN 325MG TABLET PO PRN (13:46)
[2022-11-03] MEDS ORDERED: LACTULOSE 20G/30ML UDC PO PRN (14:00)
[2022-11-03] MEDS ORDERED: METHYLPREDNISOLONE SOD SUCC 125 MG/2 ML VIAL IV SCH (14:00)
[2022-11-03] MEDS ORDERED: AZITHROMYCIN 500 MG TABLET PO NR (14:45)
[2022-11-03] MEDS: METHYLPREDNISOLONE SOD SUCC 125 MG/2 ML VIAL IV SCH ×2 (15:15→20:58)
[2022-11-03] MEDS: CEFEPIME 2,000 MG in DEXT 5% WATER 100 ML IV SCH (15:37)
[2022-11-03] MEDS: ASCORBIC ACID 500 MG TABLET PO SCH (17:20)
[2022-11-03] MEDS: FERROUS SULFATE 325MG TABLET PO SCH (17:20)
[2022-11-03 17:37] LABS: HEMOGLOBIN 7.5 g/dL (12.0-16.0)
[2022-11-03] MEDS ORDERED: DIATR MEGLU/DIATRIZOATE SOLN 30ML PO NR (18:00)
[2022-11-03] MEDS ORDERED: CALCIUM GLUCONATE 2,000 MG in DEXT 5% WATER 100 ML IV NR (20:00)
[2022-11-03] MEDS: FAMOTIDINE 20MG TABLET PO SCH (20:59)
[2022-11-03] MEDS: MIRTAZAPINE 15MG TABLET PO SCH (20:59)
[2022-11-03] MEDS: SODIUM CHLORIDE 0.9% 1,000 ML IV SCH (21:43)
[2022-11-03] MEDS ORDERED: ZOLPIDEM TARTRATE 5MG TABLET PO PRN (23:45)
[2022-11-04] VITALS (18 sets, daily range): BP systolic 96–169; BP diastolic 41–118
[2022-11-04] MEDS: IPRATROPIUM BROMIDE (0.02%) 0.5MG/2.5ML NEB HHN SCH ×3 (02:37→13:12)
[2022-11-04] MEDS: CEFEPIME 2,000 MG in DEXT 5% WATER 100 ML IV SCH ×2 (04:56→17:44)
[2022-11-04] MEDS: METHYLPREDNISOLONE SOD SUCC 125 MG/2 ML VIAL IV SCH ×3 (04:57→21:55)
[2022-11-04 06:09] LABS: CHLORIDE 110 mEq/L (98-107)
[2022-11-04] MEDS: INSULIN LISPRO 100 UNITS/ML SUBCUT SCH ×4 (08:00→22:01)
[2022-11-04] MEDS: BLOOD SUGAR DIAGNOSTIC STRIP TEST SCH ×4 (08:04→21:00)
[2022-11-04] MEDS ORDERED: AZITHROMYCIN 250 MG TABLET PO SCH (09:00)
[2022-11-04] MEDS: MENTHOL/LANOLIN/CALAMINE/ZN OX OINT 71GM TOP SCH ×2 (09:00→17:44)
[2022-11-04] MEDS: ASCORBIC ACID 500 MG TABLET PO SCH ×2 (09:56→17:44)
[2022-11-04] MEDS: BENZONATATE 100MG CAPSULE PO SCH ×3 (09:56→17:47)
[2022-11-04] MEDS: MULTIVITAMINS,THER W-MINERALS TABLET PO SCH (09:56)
[2022-11-04] MEDS: PIRFENIDONE 801 MG PO SCH ×3 (09:56→17:48)
[2022-11-04] MEDS: SERTRALINE HCL 25MG TABLET PO SCH (09:56)
[2022-11-04] MEDS: FERROUS SULFATE 325MG TABLET PO SCH ×2 (09:56→17:44)
[2022-11-04] MEDS: GUAIFENESIN 600MG ER TABLET PO SCH ×2 (09:56→21:39)
[2022-11-04] MEDS: INSULIN GLARGINE 100 UNITS/ML SUBCUT SCH ×2 (10:06→21:58)
[2022-11-04 13:01] LABS: HEMATOCRIT. 25.2 % (36.0-48.0); HEMOGLOBIN. 8.2 g/dL (12.0-16.0); MEAN CORPUSCULAR VOLUME 79.6 fL (81.0-99.0); MEAN PLATELET VOLUME 8.1 fl (7.4-10.4); PLATELET 93 x1000/uL (130-400); RED BLOOD CELL COUNT 3.17 mill/uL (4.2-5.4); RED CELL DISTRIBUTION WIDTH 24.4 % (11.6-14.6)
[2022-11-04 13:30] LABS: NUCLEATED RED BLOOD CELLS 3 /100 WBC; PLATELET ESTIMATE DECREASED
[2022-11-04] MEDS: PANTOPRAZOLE SODIUM 40 MG/VIAL IV SCH ×2 (13:45→21:39)
[2022-11-04 19:56] LABS: HEMATOCRIT 26.7 % (36.0-48.0); HEMOGLOBIN 8.5 g/dL (12.0-16.0)
[2022-11-04] MEDS: MIRTAZAPINE 15MG TABLET PO SCH (21:39)
[2022-11-04] MEDS: FAMOTIDINE 20MG TABLET PO SCH (21:39)
[2022-11-04] MEDS ORDERED: IPRATROPIUM BROMIDE (0.02%) 0.5MG/2.5ML NEB HHN SCH (22:00)
[2022-11-04] MEDS: METRONIDAZOLE 500 MG PREMIX 100 ML IV SCH (23:07)
[2022-11-04 23:38] LABS: BG BASE EXCESS -5.4 mmol/L (-2.0-2.0); BG DEOXYHEMOGLOBIN 22.7 % (0.0-5.0); BG FRACTION INSPIRED OXYGEN 100; BG HCO3 ACT 23.1 mmol/L (22.0-26.0); BG METHEMOGLOBIN 0.1 % (0.0-1.5); BG OXYHEMOGLOBIN 76.2 % (94.0-97.0); BG PCO2 62.2 mmHg (35.0-45.0); BG PH 7.188 (7.350-7.450); BG PO2 47.2 mmHg (75.0-100.0); BG SAMPLE SITE RIGHT RADIAL; BG TOTAL HEMOGLOBIN 9.5 g/dL (12.0-18.0)
[2022-11-05] VITALS (38 sets, daily range): BP systolic 49–143; BP diastolic 2–89
[2022-11-05] MEDS ORDERED: METHYLPREDNISOLONE SOD SUCC 125 MG/2 ML VIAL IV NR (00:15)
[2022-11-05 00:27] LABS: HEMATOCRIT 26.1 % (36.0-48.0); HEMOGLOBIN 8.6 g/dL (12.0-16.0)
[2022-11-05] MEDS ORDERED: PHENYLEPHRINE 100 MG in DEXT 5% WATER 240 ML IV PRN (02:00)
[2022-11-05] MEDS ORDERED: NOREPINEPHRINE 32 MG in DEXT 5% WATER 218 ML IV PRN (02:00)
[2022-11-05] MEDS: PROPOFOL 10MG/ML 100ML 100 ML IV PRN ×2 (02:24→08:02)
[2022-11-05 03:08] LABS: BG BASE EXCESS -6.9 mmol/L (-2.0-2.0); BG CARBOXYHEMOGLOBIN 1.3 % (0.5-1.5); BG DEOXYHEMOGLOBIN 25.1 % (0.0-5.0); BG FRACTION INSPIRED OXYGEN 100; BG HCO3 ACT 20.2 mmol/L (22.0-26.0); BG METHEMOGLOBIN 0.1 % (0.0-1.5); BG OXYGEN SATURATION 74.5 % (92.0-98.5); BG OXYHEMOGLOBIN 73.5 % (94.0-97.0); BG PCO2 48.2 mmHg (35.0-45.0); BG PO2 42.6 mmHg (75.0-100.0); BG SAMPLE SITE RIGHT BRACHIAL; BG TOTAL HEMOGLOBIN 8.8 g/dL (12.0-18.0); BG VENT MODE VENT - AC
[2022-11-05] MEDS ORDERED: FENTANYL 2500MCG/250ML PMX 250 ML IV PRN (03:30)
[2022-11-05] MEDS ORDERED: MIDAZOLAM HCL 100 MG in SODIUM CHLORIDE 0.9% 80 ML IV PRN (03:30)
[2022-11-05] MEDS: BLOOD SUGAR DIAGNOSTIC STRIP TEST SCH (05:49)
[2022-11-05] MEDS: CEFEPIME 2,000 MG in DEXT 5% WATER 100 ML IV SCH (06:28)
[2022-11-05] MEDS: METRONIDAZOLE 500 MG PREMIX 100 ML IV SCH (06:29)
[2022-11-05] MEDS: METHYLPREDNISOLONE SOD SUCC 125 MG/2 ML VIAL IV SCH (06:30)
[2022-11-05] MEDS: INSULIN LISPRO 100 UNITS/ML SUBCUT SCH (06:30)
[2022-11-05 07:53] LABS: CHLORIDE 104 mEq/L (98-107)
[2022-11-05] MEDS ORDERED: LIDOCAINE HCL 1% 30ML VIAL (10MG/ML) ONE (08:00)
[2022-11-05 09:07] LABS: BG BASE EXCESS -8.7 mmol/L (-2.0-2.0); BG CARBOXYHEMOGLOBIN 1.6 % (0.5-1.5); BG DEOXYHEMOGLOBIN 32.7 % (0.0-5.0); BG FRACTION INSPIRED OXYGEN 100; BG HCO3 ACT 20.2 mmol/L (22.0-26.0); BG METHEMOGLOBIN 0.3 % (0.0-1.5); BG OXYGEN SATURATION 66.7 % (92.0-98.5); BG OXYHEMOGLOBIN 65.4 % (94.0-97.0); BG PCO2 60.5 mmHg (35.0-45.0); BG PH 7.142 (7.350-7.450); BG PO2 39.6 mmHg (75.0-100.0); BG SAMPLE SITE RIGHT RADIAL; BG TOTAL HEMOGLOBIN 9.2 g/dL (12.0-18.0); BG VENT MODE VENT - AC
[2022-11-05] MEDS ORDERED: ETOMIDATE 2MG/ML 10ML VIAL IV ONE (09:28)
[2022-11-05] MEDS ORDERED: SUCCINYLCHOLINE CHLORIDE 200MG/10ML IV ONE (09:28)
[2022-11-05] MEDS ORDERED: EPINEPHRINE 0.1MG/ML (1:10,000) 10ML SYR ONE (10:05)
[2022-11-05] MEDS ORDERED: CALCIUM CHLORIDE 1GM/10ML SYR IV ONE (10:05)
[2022-11-05] MEDS ORDERED: ATROPINE SULFATE 1MG/10ML SYR ONE (10:05)
[2022-11-05] MEDS ORDERED: SODIUM BICARBONATE 8.4% 1 MEQ/ML 50ML SYR IV ONE (10:05)
== END 2022-11-05 12:00 | DRG 208 ==
LOC: ER 17:30 → 5EST 10-10 01:39 → EDBEDREQSVC 10-10 01:58 → EDBEDREQ 10-10 01:58 → EDBEDREQTM 10-10 01:58 → MICUSO 11-05 01:57
PROVIDERS: ADMIT Internal Medicine; ATTEND Internal Medicine
PROC: 5A0955A Assistance with Respiratory Ventilation, Greater than 96 Consecutive Hours, High Flow/Velocity Cannula (ICD-10-PCS; principal; 2022-10-10)
PROC: 30233N1 Transfusion of Nonautologous Red Blood Cells into Peripheral Vein, Percutaneous Approach (ICD-10-PCS; 2022-11-02)
PROC: 5A09357 Assistance with Respiratory Ventilation, Less than 24 Consecutive Hours, Continuous Positive Airway Pressure (ICD-10-PCS; 2022-11-04)
PROC: 5A09357 Assistance with Respiratory Ventilation, Less than 24 Consecutive Hours, Continuous Positive Airway Pressure (ICD-10-PCS; 2022-11-04)
PROC: 5A1935Z Respiratory Ventilation, Less than 24 Consecutive Hours (ICD-10-PCS; 2022-11-05)
PROC: 0BH18EZ Insertion of Endotracheal Airway into Trachea, Via Natural or Artificial Opening Endoscopic (ICD-10-PCS; 2022-11-05)
PROC: 5A12012 Performance of Cardiac Output, Single, Manual (ICD-10-PCS; 2022-11-05)
DX: J96.21 Acute and chronic respiratory failure with hypoxia (principal); R65.11 Systemic inflammatory response syndrome (SIRS) of non-infectious origin with acute organ dysfunction; E44.0 Moderate protein-calorie malnutrition; J84.10 Pulmonary fibrosis, unspecified; F41.9 Anxiety disorder, unspecified; D64.9 Anemia, unspecified; L89.159 Pressure ulcer of sacral region, unspecified stage; E83.51 Hypocalcemia; E88.09 Other disorders of plasma-protein metabolism, not elsewhere classified; D72.825 Bandemia; K59.00 Constipation, unspecified; Z20.822 Contact with and (suspected) exposure to COVID-19; J44.9 Chronic obstructive pulmonary disease, unspecified; Z99.81 Dependence on supplemental oxygen; Z68.22 Body mass index [BMI] 22.0-22.9, adult
CPT/HCPCS: 31500; 36415; 36573; 36600; 71045; 78278; 80048; 80053; 81003; 82040; 82375; 82607; 82728; 82746; 82805; 82962; 83036; 83540; 83550; 83605; 83880; 84134; 84145; 84484; 85014; 85018; 85025; 85044; 86850; 86900; 86920; 87426; 93005; 94002; 94003; 94640; 94660; 97110; 97162; 97530; 97535; 99285; A6261; A9560; C1725; C1893; C9113; C9803; J0330; J0461; J0610; J0692; J1650; J1815; J2405; J2543; J2704; J2920; J2930; J3370; J3490; J7030; J7060; P9016